=== PATIENT | female | born 1980 | race Hispanic/Latino ===

== ENCOUNTER → 2021-06-26 | Outpatient (CLI) | payer BC | END | disposition home or self-care (01) | LOC: RAH 08:54 | PROVIDERS: ATTEND Internal Medicine | DX: M51.37 Other intervertebral disc degeneration, lumbosacral region (principal) | CPT/HCPCS: 72148 ==

== ENCOUNTER → 2024-07-27 | Emergency (ER) | payer BC ==
[~2024-07-27] VITALS: Ht 157.5 cm; Wt 88.5 kg
[~2024-07-27] MED LIST: hydroMORPHone 0.5 MG SYG (0.5MG/0.5ML) IVP ONE; ondanSETRON 4MG INJ IVP ONE
[2024-07-27 17:51] VITALS: BP 152/89; PULSE 74; RESP 16; TEMP 98
[2024-07-27 18:28] LABS: BASOPHILS # (AUTO) 0.05 K/uL (0.00-0.20); BASOPHILS % (AUTO) 0.6 % (0.0-5.0); EOSINOPHILS # (AUTO) 0.32 K/uL (0.00-0.70); EOSINOPHILS % (AUTO) 3.6 % (0.0-8.0); HEMATOCRIT 38.8 % (36-48); IMMATURE GRANULOCYTE ABSOLUTE 0.04 K/uL (0-1); LYMPHOCYTES # (AUTO) 3.4 K/uL (1.0-4.8); LYMPHOCYTES % (AUTO) 37.4 % (21.0-51.0); MEAN CORPUSCULAR HEMOGLOBIN 27.4 pg (27.0-33.0); MEAN CORPUSCULAR HGB CONC 32.5 g/dL (32.0-36.0); MEAN CORPUSCULAR VOLUME 84.3 fL (79-99); MONOCYTES # (AUTO) 0.4 K/uL (0.1-1.0); MONOCYTES % (AUTO) 4.7 % (3.0-13.0); NEUTROPHILS # (AUTO) 4.8 K/uL (1.8-7.7); NEUTROPHILS % (AUTO) 53.3 % (40.0-77.0); PLATELET COUNT (AUTO) 377 K/uL (130-400); RED CELL DISTRIBUTION WIDTH 14.6 % (11.0-15.5)
--- NOTE | 2024-07-27 18:30 | ERN ---
ED Note History of Present Illness Stated Complaint: PAIN IN GALLBADDER Chief Complaint: Abdominal Pain Time Seen by MD: 17:35 Time Seen by Midlevel: 18:30 Dictation: Ms. Ibrahim is a 3-year-old female with history of obesity, hypothyroidism, and cholelithiasis who presented to the emergency department this evening for evaluation of abdominal pain. She states that at 2:00 p.m. today she developed right upper quadrant/epigastric pain radiating to the right shoulder/upper back. She states she has nausea without emesis and felt feverish. She denies having shortness of breath, cough, chest pain, palpitations, edema, vomiting, diarrhea, dysuria, headache, or dizziness. She states she has a history of gallstones and has had HIDA scan and was told that she has a non functioning gallbladder . She did go to her PCP's office just prior to coming here and was told she should come immediately to the emergency department for pain control and further workup. PCP: Jose Gong DNP Allergies: Coded Allergies: No Known Allergies (Unverified Allergy, Unknown, 07/27/24) Emergency Care MARKETING INSTRUCTOR: None Past Medical History Past Medical History: Gallstones, Hypothyroid Surgical History: Other (), PSYCH History: no pertinent psych hx Social History: Negative LMP: Jul 06, 2024 RN Note Reviewed/Agreed w/PFSH: Yes Review of System Dictation REVIEW OF SYSTEMS: CONSTITUTIONAL: Patient denies fevers, chills, sweats and weight changes. States she feels hot. EYES: Patient denies any visual symptoms. EARS, NOSE, AND THROAT: No difficulties with hearing. No symptoms of rhinitis or sore throat. CARDIOVASCULAR: Patient denies chest pains, palpitations, orthopnea and paroxysmal nocturnal dyspnea. RESPIRATORY: No dyspnea on exertion, no wheezing or cough. GI: No vomiting, diarrhea, constipation,hematochezia or melena. States she has a history of gallstones and non functioning gallbladder. Reports right-sided abdominal pain radiating to the back and shoulder. Reports nausea without emesis. : No urinary hesitancy or dribbling. No nocturia or urinary frequency. No abnormal urethral discharge. MUSCULOSKELETAL: No myalgias or arthralgias. NEUROLOGIC: No chronic headaches, no seizures. Patient denies numbness, tingling or weakness. PSYCHIATRIC: Patient denies problems with mood disturbance. No problems with anxiety. ENDOCRINE: No excessive urination or excessive thirst. DERMATOLOGIC: Patient denies any rashes or skin changes. Initial Vital Sign VS Vital Signs Date Time Temp Pulse Resp B/P (MAP) Pulse Ox O2 Delivery O2 Flow Rate FiO2 07/27/24 17:51 98.1 74 16 152/89 100 Room Air 0 Physical Exam Dictation Vital signs: Reviewed. Afebrile Constitutional: Moderate distress/uncomfortable. significant other accompanying Head/Face: Normocephalic, atraumatic. Eyes: Periorbital areas with no swelling, redness, or edema. Lids and lashes are normal. Conjunctival injection is absent. Sclera anicteric. Pupils equal, round, reactive to light. ENT: Pinnas intact and no signs of trauma or erythema. Ear canals clear and no discharge. TMs no erythema. No nasal discharge or bleeding noted. Oropharynx with no exudate, redness, swelling, masses, exudates, or evidence of obstruction. Uvula midline. Mucous membranes moist. Neck: Trachea midline, no masses palpated, and no cervical lymphadenopathy. No swelling. Supple, full range of motion. Chest/Axilla: No tenderness, no crepitus, no paradoxical movement, no retractions. Cardiovascular: Regular rate, regular rhythm, no murmur, no gallops. Symmetric pulses. No peripheral edema. Respiratory: Respirations even and unlabored. Lung sounds clear; no wheezes, rales or rhonchi. Room air SpO2 98% Gastrointestinal: Inspection is normal. No distention is appreciated. Bowel sounds are normal. No mass or organomegaly . Tenderness upon palpation RUQ and over the epigastrium No rebound. No rigidity. No voluntary or involuntary guarding. No Lopez's sign. Neurological: Normal speech, gross motor function intact, gross sensory function intact. No focal weakness/Paresthesia. Musculoskeletal/Extremities: All extremities have full range of motion, no pain or tenderness on palpation. Symmetric pulses. Integumentary: Intact. Skin is normal color, warm and dry. Cap refill less than 2 seconds. Results (Laboratory/Radiology) Laboratory/Radiology Laboratory Tests Test 07/27/24 18:15 07/27/24 18:27 White Blood Count 9.0 K/uL (4.8-10.8) Red Blood Count 4.60 MIL/uL (4.00-5.50) Hemoglobin 12.6 g/dL (12.0-16.0) Hematocrit 38.8 % (36-48) Mean Corpuscular Volume 84.3 fL (79-99) Mean Corpuscular Hemoglobin 27.4 pg (27.0-33.0) Mean Corpuscular Hemoglobin Concent 32.5 g/dL (32.0-36.0) Red Cell Distribution Width 14.6 % (11.0-15.5) Platelet Count 377 K/uL (130-400) Mean Platelet Volume 10.3 fL (7.5-10.5) Immature Granulocyte % (Auto) 0.4 % (0-1) Neutrophils (%) (Auto) 53.3 % (40.0-77.0) Lymphocytes (%) (Auto) 37.4 % (21.0-51.0) Monocytes (%) (Auto) 4.7 % (3.0-13.0) Eosinophils (%) (Auto) 3.6 % (0.0-8.0) Basophils (%) (Auto) 0.6 % (0.0-5.0) Neutrophils # (Auto) 4.8 K/uL (1.8-7.7) Lymphocytes # (Auto) 3.4 K/uL (1.0-4.8) Monocytes # (Auto) 0.4 K/uL (0.1-1.0) Eosinophils # (Auto) 0.32 K/uL (0.00-0.70) Basophils # (Auto) 0.05 K/uL (0.00-0.20) Absolute Immature Granulocyte (auto 0.04 K/uL (0-1) Nucleated Red Blood Cells 0.0 % (0.0-0.19) Sodium Level 138 mmol/L (136-145) Potassium Level 3.9 mmol/L (3.5-5.1) Chloride Level 102 mmol/L (101-111) Carbon Dioxide Level 30 mmol/L (21-32) Blood Urea Nitrogen 16 mg/dL (7-18) Creatinine 0.8 mg/dL (0.5-1.0) Glomerular Filtration Rate Calc 93 mL/min (>90) Random Glucose 95 mg/dL (70-105) Total Calcium 9.2 mg/dL (8.5-10.1) Lipase 29 U/L (16-77) Urine Color LIGHT-YELLOW (YELLOW) Urine Appearance CLEAR (CLEAR) Urine pH 5.5 (5.0-8.0) Urine Specific [place] 1.015 (1.001-1.031) Urine Protein NEGATIVE mg/dL (NEGATIVE) Urine Glucose (UA) NEGATIVE mg/dL (NEGATIVE) Urine Ketones NEGATIVE mg/dL (NEGATIVE) Urine Occult Blood SMALL (NEGATIVE) H Urine Nitrate NEGATIVE (NEGATIVE) Urine Bilirubin NEGATIVE mg/dL (NEGATIVE) Urine Urobilinogen 0.2 mg/dL (0.2-1.0) Urine Leukocyte Esterase NEGATIVE Romi/uL Urine RBC 2-5 /HPF (0-1) H Urine WBC 2-5 /HPF (0-1) H Urine Squamous Epithelial Cells FEW /HPF (0-2) Urine Bacteria None /HPF (None Seen) Urine HCG, Qualitative NEGATIVE (NEGATIVE) ED Course ED Course Orders Procedure Category Date Status Time Cbc With Differential LAB 07/27/24 Complete 17:55 Basic Metabolic Panel LAB 07/27/24 Complete 17:55 Lipase LAB 07/27/24 Complete 17:55 Urinalysis Profile LAB 07/27/24 Complete 17:55 ,Urine Test LAB 07/27/24 Complete 17:55 Us Abdominal Ruq\Ltd US 07/27/24 Logged 18:42 Keep Patient Npo CPOE 07/27/24 Transmitted 18:57 Ondansetron 4mg Inj PHA 07/27/24 Complete (Zofran 4mg Inj) 19:00 Hydromorphone 0.5mg PHA 07/27/24 Complete Syg (Dilaudid 0.5mg 19:00 Current Medications Medications (Trade) Dose Ordered Sig/Jose Route PRN Reason Start Time Stop Time Status Last Admin Dose Admin Hydromorphone HCl (DiLAUDid 0.5MG INJ) 0.5 mg ONCE ONCE IVP 07/27/24 19:00 07/27/24 19:01 DC Ondansetron HCl (zoFRAN 4MG INJ) 4 mg ONCE ONCE IVP 07/27/24 19:00 07/27/24 19:01 DC Vital Signs Date Time Temp Pulse Resp B/P (MAP) Pulse Ox O2 Delivery O2 Flow Rate FiO2 07/27/24 17:51 98.1 74 16 152/89 100 Room Air 0 Medical Decision Making MDM Differential diagnosis: Cholelithiasis Choledocholithiasis Fluid volume deficit Patient was evaluated. Ultrasound, laboratory studies, IV fluids, antiemetic and pain medications had been ordered. Patient eloped from ED lobby DX & DISP Disposition: Other(Comment) (Eloped from ED lobby after evaluation) Departure Impression: Primary Impression: Abdominal pain Additional Impressions: Hx of gallstones, Eloped from emergency department Condition: Stable Additional Instructions: Eloped from ED lobby Referrals: JAQUI GODINEZ MD (PCP) Time of Disposition: 19:44 STEVE CUETO NP Jul 27, 2024 18:30
[2024-07-27 18:40] LABS: APPEARANCE,URINE CLEAR (CLEAR); BILIRUBIN,URINE NEGATIVE (NEGATIVE); COLOR,URINE LIGHT-YELLOW (YELLOW); GLUCOSE, URINE (UA) NEGATIVE (NEGATIVE); KETONES,URINE NEGATIVE (NEGATIVE); LEUKOCYTE ESTERASE ,URINE NEGATIVE Leu/uL (NEGATIVE); NITRATE,URINE NEGATIVE (NEGATIVE); OCCULT BLOOD,URINE SMALL (NEGATIVE); PH,URINE 5.5 (5.0-8.0); PROTEIN,URINE NEGATIVE (NEGATIVE); UROBILINOGEN,URINE 0.2 mg/dL (0.2-1.0)
[2024-07-27 18:41] LABS: ADD UA MICROSCOPIC YES
[2024-07-27 18:42] LABS: HCG,QUALITATIVE URINE NEGATIVE (NEGATIVE)
[2024-07-27 18:43] LABS: SQUAMOUS EPITHELIAL CELL,UR FEW /HPF (0-2)
--- NOTE | 2024-07-27 19:25 | NUR ---
PER REGISTRATION, PT TOLD THEM THEY WERE LEAVING.
--- NOTE | 2024-07-27 19:30 | NUR ---
CALLED FOR PT IN LOBBY TO MOVE TO ; NO RESPONSE; PT NOT FOUND IN LOBBY.
[2024-07-27 19:33] LABS: CREATININE 0.8 mg/dL (0.5-1.0); POTASSIUM 3.9 mmol/L (3.5-5.1)
== END ==
LOC: EDH 17:22
DX: R10.13 Epigastric pain (principal); E03.9 Hypothyroidism, unspecified
CPT/HCPCS: 36415; 80048; 81001; 81025; 83690; 85025; 99283